=== PATIENT | female | born 1935 | race Caucasian/White ===

== ENCOUNTER → 2017-04-03 16:45 | Outpatient (CLI) | payer MEDICARE | END | disposition home or self-care (01) | LOC: D.MAMMO 13:30 | DX: R92.8 Other abnormal and inconclusive findings on diagnostic imaging of breast (principal) ==

== ENCOUNTER 2017-04-20 06:07 | Day surgery (SDC) | payer MEDICARE ==
[~2017-04-20 06:07] MED LIST: CLARITIN 10 MG10 MG PO; LANTUS INSULIN10 ML SQ; LANTUS SOL100 UNIT/1 SC; NORVASC10 MG PO; NOVOLOG100 U/M1 SC; VENTOLIN HFA18 GM INH
[2017-04-20 07:10] LABS: BASOPHILS 0.4 % (0-2); EOSINOPHILS 2.8 % (0-7); HEMOGLOBIN 15.1 g/dL (12-16); IMMATURE GRANULOCYTES 0.2 % (0-5); LYMPHOCYTES 23.2 % (15-50); MCH 30.8 pg (26.0-34.0); MCHC 33.6 g/dL (31.0-37.0); MCV 91.8 fL (80.0-100.0); MEAN PLATELET VOLUME 9.3 fL (7.4-10.4); MONOCYTES 7.3 % (2-11); NEUTROPHILS 66.1 % (40-80); PLATELET COUNT 207 10x3/uL (130-400); RDW 12.8 % (11.5-14.5); WBC 8.5 10x3/uL (4.8-10.8)
[2017-04-20 07:19] LABS: ANION GAP 9.3 mmol/L (8-16); CALCIUM 9.4 mg/dL (8.5-10.1); CARBON DIOXIDE 33.7 mmol/L (21.0-32.0); CREATININE - SERUM 1.9 mg/dL (0.6-1.3)
[2017-04-20 07:25] VITALS: BP 150/83; BMI 25.3
[2017-04-20] MEDS ORDERED: ULTRAM50 MG PO (11:27)
--- NOTE | 2017-04-20 15:29 | NUR ---
1300 IV DC WITH CATHER TIP INTACT
--- NOTE | 2017-04-21 12:36 | OP ---
PATIENT NAME: PEDRITO BROOKS MEDICAL RECORD: [id number] :35 LOCATION:[facility] ADMISSION DATE: SURGEON: HARRY CARRERO MD DATE OF OPERATION: 04/20/2017 PREOPERATIVE DIAGNOSES: 1. Left breast mass. 2. Chronic obstructive pulmonary disease. 3. Asthma. 4. Hypertension. 5. Hypercholesterolemia. 6. Diabetes mellitus. POSTOPERATIVE DIAGNOSES: 1. Left breast mass. 2. Chronic obstructive pulmonary disease. 3. Asthma. 4. Hypertension. 5. Hypercholesterolemia. 6. Diabetes mellitus. PROCEDURE: Ultrasound-guided excisional left breast biopsy. SURGEON: Harry Carrero MD REPORT OF PROCEDURE: The patient's left breast and axilla were prepped and draped in sterile fashion. Preoperatively, the patient had had an ultrasound, which showed a 1.6 cm lesion in the left inferior breast and also 1.6 cm lesion in the left axilla. An ultrasound evaluation was performed and I could see the mass that was palpable at the 6 o'clock position just past the edge of the nipple areolar complex. This was a shadowing lesion that appeared similar in size to what was seen on previous evaluations. I also evaluated the patient's left axilla, both with palpation and with ultrasound guidance. I was never able to see a shadowing lesion in this area. I could see the vasculature and I could see some smaller lymph nodes, but never any to the size that was stated in the previous reports. I went ahead and made a semicircular incision on the inferior aspect of the patient's nipple areolar complex on the left side and dissected through the subcutaneous tissues and took out a core of tissue at the 6 o'clock range of the left breast. This concluded the palpable mass. Once the tissue was completely excised, it was marked appropriately and sent off for permanent specimen. We then irrigated out the wound with saline and stopped any bleeding using electrocautery. Once we were sure there was no sign of any bleeding, the subcutaneous tissues were reapproximated with interrupted 3-0 Vicryls and the skin was closed with running subcutaneous 5-0 Monocryl. I elected not to do any dissection in the patient's left axilla since I could not definitively find the mass with ultrasound guidance. COMPLICATIONS: None. CONDITION: Stable. ANESTHESIA: General endotracheal and local. BLOOD LOSS: Minimal. OPERATIVE REPORT [id number] PEDRITO BROOKS TRANSINT:[id number] Voice Confirmation ID: [id number] DOCUMENT ID: [id number] HARRY CARRERO MD at 1236 CC: LORI SONG MD [id number] DICTATION DATE: 04/20/17 1132 HELP AID: 04/20/17 1158 DEP SDC 04/20/17 [address] [id number] [place] [address]
[2017-05-03] MEDS ORDERED: ZYLOPRIM300 MG PO (11:34)
== END 2017-04-20 13:00 | disposition home or self-care (01) ==
LOC: D.OPS 06:07 → D.PAN 09:35 → D.OPS 09:35 → D.PAN 09:45 → D.OPS 13:00
PROVIDERS: Anesthesiology
DX: N63.0 Unspecified lump in unspecified breast (principal); J44.9 Chronic obstructive pulmonary disease, unspecified; J45.909 Unspecified asthma, uncomplicated; I10 Essential (primary) hypertension; E78.00 Pure hypercholesterolemia, unspecified; E11.9 Type 2 diabetes mellitus without complications; Z01.812 Encounter for preprocedural laboratory examination

== ENCOUNTER 2017-05-04 05:52 | Day surgery (SDC) | payer MEDICARE ==
[~2017-05-04 05:52] MED LIST changes: +ULTRAM50 MG PO; +ZYLOPRIM300 MG PO
[2017-05-04 06:43] LABS: BASOPHILS 0.4 % (0-2); EOSINOPHILS 1.8 % (0-7); HEMATOCRIT 43.1 % (36.0-48.0); HEMOGLOBIN 14.6 g/dL (12-16); IMMATURE GRANULOCYTES 0.5 % (0-5); LYMPHOCYTES 20.5 % (15-50); MCH 30.9 pg (26.0-34.0); MCHC 33.9 g/dL (31.0-37.0); MCV 91.1 fL (80.0-100.0); MEAN PLATELET VOLUME 9.6 fL (7.4-10.4); MONOCYTES 6.9 % (2-11); NEUTROPHILS 69.9 % (40-80); PLATELET COUNT 200 10x3/uL (130-400); RBC 4.73 10x6/uL (4.00-5.40); RDW 12.8 % (11.5-14.5); WBC 10.8 10x3/uL (4.8-10.8)
[2017-05-04 06:55] LABS: ANION GAP 13.2 mmol/L (8-16); CALCIUM 9.1 mg/dL (8.5-10.1); CARBON DIOXIDE 28.4 mmol/L (21.0-32.0); CREATININE - SERUM 1.5 mg/dL (0.6-1.3); POTASSIUM - SERUM 3.6 mmol/L (3.5-5.1)
[2017-05-04 07:05] VITALS: BP 165/57; BMI 24.5
[2017-05-04 07:30] LABS: APTT 26.2 SECONDS (22.8-39.4)
[2017-05-04 07:31] LABS: INR 0.91 (0.85-1.17); PROTIME 12.1 SECONDS (11.6-15.0)
--- NOTE | 2017-05-16 11:14 | OP ---
PATIENT NAME: PEDRITO BROOKS MEDICAL RECORD: [id number] :35 LOCATION:[facility] ADMISSION DATE: SURGEON: HARRY CARRERO MD DATE OF OPERATION: 05/04/2017 PREOPERATIVE DIAGNOSES: 1. Left breast invasive carcinoma. 2. Hypertension. 3. Diabetes mellitus. 4. Hypercholesterolemia. 5. Asthma. 6. Gout. POSTOPERATIVE DIAGNOSES: 1. Left breast invasive carcinoma. 2. Hypertension. 3. Diabetes mellitus. 4. Hypercholesterolemia. 5. Asthma. 6. Gout. PROCEDURE: 1. Left axillary sentinel lymph node biopsy. 2. Reexcision of the anterior margin of left breast lumpectomy site. SURGEON: Harry Carrero MD REPORT OF PROCEDURE: The patient's left breast and left axilla were prepped and draped in sterile fashion. The patient had a semicircular incision on the inferior aspect of the nipple areolar complex. This was reopened. We then tunneled into the subcutaneous tissues and excised the anterior margin of the wound bed. There was a very thin layer of fatty tissue that was present. This was excised until there was really no tissue left other the skin anteriorly. This was sent off for frozen specimen. The report came back showing no sign of invasive carcinoma. The wound was then irrigated out with normal saline and any bleeding that was found was treated with electrocautery. We then packed the wound and left axilla was approached and a skin incision was made on the inferior aspect. Electrocautery was used to dissect through the subcutaneous tissues until we entered the axillary space. Once in the axillary space, we used the Neoprobe to assess the uptake in the vascular system from the preoperative lymphoscintigraphy. The patient had a lymph node, which was registering at 15,000. This lymph node was excised including 1 small lymph node that was intermittently closed with it. After this lymph node was removed, we inspected the remainder of the axillary cavity and we found no other lymph nodes which required removal. The wound bed was then irrigated out with normal saline. We then reapproximated the subcutaneous tissue and the 2 wounds using interrupted 3-0 Vicryls and the skin incisions were both closed with running subcutaneous 5-0 Monocryl. We infused a total of 10 mL of 0.25% Marcaine plain to the surrounding tissues and dressed the wounds appropriately. COMPLICATIONS: None. CONDITION: Stable. ANESTHESIA: General endotracheal and local. OPERATIVE REPORT [id number] CECILIAPEDRITO BLOOD LOSS: Minimal. TRANSINT:[id number] Voice Confirmation ID: [id number] DOCUMENT ID: [id number] HARRY CARRERO MD at 1114 CC: PAT MCKINNEY MD, LORI SONG MD and TYRA [id number] DICTATION DATE: 05/04/17 1053 TIRE SPECIALIST: 05/04/17 1111 [facility] 05/04/17 [facility] [address] [place] [address]
== END 2017-05-04 13:45 | disposition home or self-care (01) ==
LOC: D.OPS 05:52 → D.NM 07:30 → D.PAN 07:30 → D.OPS 07:30 → EDSTATUS 07:30 → D.OPS 13:45
PROVIDERS: Anesthesiology; Surgery
DX: C50.912 Malignant neoplasm of unspecified site of left female breast (principal); I10 Essential (primary) hypertension; E11.9 Type 2 diabetes mellitus without complications; E78.00 Pure hypercholesterolemia, unspecified; J45.909 Unspecified asthma, uncomplicated; M10.9 Gout, unspecified; K21.9 Gastro-esophageal reflux disease without esophagitis; Z01.812 Encounter for preprocedural laboratory examination

== ENCOUNTER → 2018-06-06 13:46 | Outpatient (CLI) | payer MEDICARE | END | disposition home or self-care (01) | LOC: D.CT 13:30 | DX: R91.1 Solitary pulmonary nodule (principal) ==

== ENCOUNTER → 2018-07-05 11:49 | Outpatient (CLI) | payer MEDICARE ==
--- NOTE | ~2018-07-05 | ST ---
PATIENT:PEDRITO BROOKS MEDICAL RECORD: [id number] SEX: F LOCATION:[facility] ORDER #: ADMISSION DATE: 07/05/18 AGE OF PATIENT: 83 REFERRING PHYSICIAN: INTERPRETING PHYSICIAN: LORRI VERGARA MD DATE OF SERVICE: 07/05/2018 PROCEDURE: Nuclear stress test. INDICATION: Angina, shortness of breath, and hypertension. The patient was exercised on standard Lexiscan protocol with 33 mCi of sestamibi, injected at peak stress and 10 mCi was injected previously for rest images. FINDINGS: Gated SPECT reveals preserved ejection fraction at 50% with good wall motion and thickening and brightening throughout all segments. SPECT imaging Cardiolite was used as myocardial fusion agent. There is homogeneous uptake throughout all segments at rest and stress with no evidence of inducible ischemia or previous infarction. OVERALL IMPRESSION: 1. This is a normal nuclear stress test with no evidence of inducible ischemia or previous infarction. 2. Gated SPECT reveals a preserved ejection fraction at 50%. In this patient with ongoing symptomatology, the current scan does not suggest the presence of hemodynamically significant coronary artery disease. Evaluate noncardiac etiology of chest pain. TRANSINT:[id number] Voice Confirmation ID: [id number] DOCUMENT ID: [id number] LORRI VERGARA MD CC: LORI SONG [id number] DICTATION DATE: 07/06/18 0903 HEALTH TECHNICIAN: 07/07/18 0342 DEP CLI 07/05/[address] [address]
== END | disposition home or self-care (01) ==
LOC: D.HCCARDIO 11:49
DX: I20.9 Angina pectoris, unspecified (principal)

== ENCOUNTER 2018-07-20 08:45 | Inpatient (IN) | payer MEDICARE ==
[~2018-07-20] VITALS: Ht 157.5 cm; Wt 54.5 kg
--- NOTE | ~2018-07-20 | HEMODYNAMI ---
PATIENT:PEDRITO BROOKS MEDICAL RECORD: [id number] : 35 LOCATION:[facility] ADMISSION DATE: 07/20/18 Generatedon:07/20/201818:03 Patient name: PEDRITO BROOKS Patient #: [id number] SSN: : 1935 Date of study: 07/20/2018 Page: Of Hemodynamic Procedure Report Patient Data Patient Demographics Procedure consent was obtained First Name: PEDRITO Gender: Female Last Name: CECILIA : 1935 Patient #: [id number] Age: 83 year(s) Race: Unknown Additional ID: [id number] Contact details Address: [address] [place] [address] [facility] State: [place] City: [place] Zip code: [address] Past Medical History Allergies Allergen Reaction Date Comments Reported Penicillins 07/20/2018 Sulfa drugs 07/20/2018 Admission Admission Data Admission Date: 07/20/2018 Admission Time: 8:45 Procedure Procedure Types Cath Procedure Peripheral Cath Diagnostic Procedure Miscellaneous Procedure Description Procedure Date Procedure Date: 07/20/2018 Procedure Start Time: 17:45 Procedure Staff Name Function Iain Robertson MD Performing Physician Britany Andrews RT Monitor Mikey Simmons RT Scrub Dee Dee Sanchez RN Nurse Procedure Data Cath Procedure Fluoroscopy Diagnostic fluoroscopy Total fluoroscopy Time: 2.7 time: 2.7 min min Diagnostic fluoroscopy Total fluoroscopy dose: 7 dose: 7 mGy mGy Procedure Medications Medication Administration Route Dosage Oxygen etCO2 Nasal cannula 3 l/min Lidocaine 1% added to field 20 Heparin Flush Bag added to field 1 bags (1000units/500ml NS) Fentanyl I.V. 50 mcg Versed I.V. 2 mg Hemodynamics Rest Heart Rate: 107 (bpm) Snapshots Pre Cath Intra NCS Post Cath Vital Signs Time Heart Resp SPO2 etCO2 NIBP (mmHg) Rhythm Pain Sedation Rate (ipm) (%) (mmHg) Status Level (bpm) 17:40:[address] 0 (11) 10(A) , No pain 17:43:26 110 32 100 32.4 187/89(125) ST 0 (11) 10(A) , No pain 17:47:24 108 34 100 21 207/74(135) ST 0 (11) 9(A) , No pain 17:51:58 111 18 97 10.5 131/97(110) ST 0 (11) 8(A) , No pain 17:56:57 92 29 97 12 Measuring NSR 0 (11) 8(A) , No pain 17:58:17 108 31 97 18.8 139/89(110) ST 0 (11) 8(A) , No pain 18:02:39 107 23 97 3 165/72(77) ST 0 (11) 8(A) , No pain Medications Time Medication Route Dose Verified Delivered Reason Notes Effe ctiveness by by 17:47:13 Oxygen etCO2 3 Iain Funez for low Nasal l/min Marcelo Sanchez RN 02 sats cannula 17:48:01 Lidocaine 1% added 20ml Iain Timmons used for to vial Marcelo Robertson procedure field MD CALDERON 17:48:26 Heparin Flush added 1 Iain Timmons used for Bag to bags Marcelo Robertson procedure (1000units/500ml field MD CALDERON NS) 17:48:38 Fentanyl I.V. 50 Iain Dee Dee for Most ly mcg Marcelo Sanchez RN sedation sleeping @ 18:01:18 17:48:49 Versed I.V. 2 mg Iain Funez for Most ly Marcelo Sanchez RN sedation sleeping @ 18:01:14 Procedure Log Time Note 16:52:17 Use device set IR Diagnostic 16:52:20 Sterile Angiographic Pack opened to sterile field. 16:52:21 Bag Decanter (2002S) opened to sterile field. 16:58:51 Time tracking: Regular hours (M-F 7:00 - 5:00) 16:59:15 Plan of Care:Hemodynamics will remain stable., Cardiac rhythm will remain stable., Comfort level will be maintained., Respiratory function will remain adequate., Patient/ family verbilizes understanding of procedure., Procedure tolerated without complication., Recovers from procedure without complications.. 16:59:26 Patient received from Outpatients to IR Alert and oriented. Tansferred to table in Supine position. 16:59:30 Signed procedure consent form obtained from patient. 17:00:09 H&P Date Dictated: 07/20/2018 Within 30 days and on chart.. 17:00:14 Pre-procedure instructions explained to patient. 17:00:15 Pre-op teaching completed and patient verbalized understanding. 17:00:20 Family unavailable. 17:00:23 Patient NPO since Midnight. 17:00:34 Patient allergic to Penicillins 17:00:41 Patient allergic to Sulfa drugs 17:00:52 Is patient on blood thinner?No 17:00:56 Patient diabetic? No. 17:00:58 - 17:01:21 IV patent on arrival in right hand with D5/.45%NaCl at KVO. 17:02:10 Right chest area was prepped with chlora-prep and draped in sterile fashion 17:02:21 - 17:11:36 LÓPEZ 80cm wire ([id number]) opened to sterile field. 17:11:37 Abscession 12 FR drainage catheter ([id number]) opened to sterile field. 17:12:35 YUCH needle opened to sterile field. 17:40:21 - 17:40:24 ECG and BP/O2 sat monitors applied to patient. 17:40:26 Vital chart was started 17:40:38 Baseline sample Acquired. 17:40:41 Full Disclosure recording started 17:44:45 - :44:49 Physician arrived 17:44:50 --------ALL STOP TIME OUT------ :50 Final Timeout: patient, procedure, and site verified with staff and physician. All members of the team are in agreement. :45:50 Procedure started. 17:45:57 Local anesthetic to Chest area with Lidocaine 1% by Iain Robertson MD.INITIAL ACCESS ONLY 17:46:25 STOPCOCK 3-Way Large Bore ([id number]) opened to sterile field. 17:47:13 Oxygen 3 l/min etCO2 Nasal cannula was administered by Dee Dee Sanchez RN; for low 02 sats; 17:48:01 Lidocaine 1% 20ml vial added to field was administered by Iain lord MD; used for procedure; 17:48:02 CONNECTING TUBE FOR DRAINAGE BAG ([id number]) opened to sterile field. 17:48:26 Heparin Flush Bag (1000units/500ml NS) 1 bags added to field was administered by Iain Robertson MD; used for procedure; 17:48:38 Fentanyl 50 mcg I.V. was administered by Dee Dee Sanchez RN; for sedation; :48:49 Versed 2 mg I.V. was administered by Dee Dee Sanchez RN; for sedation; :49:29 - 17:49:34 ----Pre-sedation anethsthesia assessment.---- 17:49:38 Previous problem with sedation/anesthesia? No ? 17:49:41 Snore? No 17:49:50 Deviated septum? No 17:49:52 Opens mouth fully? Yes 17:49:54 Sticks out tongue? Yes 17:50:00 Airway obstruction? Yes copd 17:50:05 Dentures? No ? 17:50:09 - 17:54:51 Procedure ended.(Physican Out) 17:55:05 Fluoroscopy time 02.70 minutes. 17:55:09 Fluoroscopy dose: 7 mGy 17:55:09 Flurop Dose total: 7 17:55:12 Procedure and supply charges have been captured, reviewed, submitted an d are correct. 18:01:09 Report given to Med/Surg. 18:01:14 Effectiveness of Versed delivered @ 17:48:49 is: Mostly sleeping 18:01:18 Effectiveness of Fentanyl delivered @ 17:48:38 is: Mostly sleeping 18:03:49 Vital chart was stopped Device Usage Item Name Manufacture Quantity Catalog Hospital Part Current Minima l Lot# / Number Charge Number Stock Stock Serial# Code Sterile Cardinal 1 [id number] 5 Angiographic Health Pack Bag Decanter Microtek 1 2001S [id number] 5 () [employer]. LÓPEZ 80cm Cook [employer] 1 [id number] [id number] 5 [id number] wire ([id number]) Abscession Angiodynamics 1 [id number] 999878 680152 5 12 FR drainage catheter ([id number]) YUCH needle Cook [facility] 1 [id number] 535114 699934 5 [id number] STOPCOCK Cook [facility] 1 [id number] 898568 1448 [id number] 5 [id number] 3-Way Large Bore ([id number]) CONNECTING [place] 1 [id number] 778555 [id number] [id number] 5 TUBE FOR Scientific DRAINAGE BAG ([id number]) Signature [place] Stage Time Signature Unsigned Intra-Procedure 07/20/2018 Britany Andrews 6:03:47 PM RT(R) Signatures Monitor : Britany Andrews RT Signature : Date : Time : [place] [id number] [place] [address]
[2018-07-20 09:14] LABS: BASOPHILS 0.5 % (0-2); EOSINOPHILS 3.2 % (0-7); HEMATOCRIT 41.9 % (36.0-48.0); HEMOGLOBIN 14.3 g/dL (12-16); IMMATURE GRANULOCYTES 0.2 % (0-5); LYMPHOCYTES 18.2 % (15-50); MCH 31.8 pg (26.0-34.0); MCHC 34.1 g/dL (31.0-37.0); MCV 93.1 fL (80.0-100.0); MEAN PLATELET VOLUME 9.4 fL (7.4-10.4); MONOCYTES 7.7 % (2-11); NEUTROPHILS 70.2 % (40-80); PLATELET COUNT 213 10x3/uL (130-400); RDW 12.6 % (11.5-14.5); WBC 8.7 10x3/uL (4.8-10.8)
[2018-07-20 09:19] LABS: ANION GAP 9.4 mmol/L (8-16); CALCIUM 10.2 mg/dL (8.5-10.1); CARBON DIOXIDE 33.8 mmol/L (21.0-32.0); CREATININE - SERUM 1.7 mg/dL (0.6-1.3); POTASSIUM - SERUM 4.2 mmol/L (3.5-5.1)
[2018-07-20 09:43] LABS: APTT 29.7 SECONDS (22.8-39.4)
[2018-07-20 09:58] VITALS: BP 156/63; BMI 22.0
[2018-07-20 10:19] LABS: INR 0.96 (0.85-1.17); PROTIME 12.2 SECONDS (11.6-15.0)
--- NOTE | 2018-07-20 12:45 | NUR ---
REC'D FROM [facility] VIA BED. NO FAMILY AT BEDSIDE. O2 SAT 90% RA. PLACED ON 2L/MIN NC AND O2 SAT CAME UP TO 92% AFTER 2 MIN ON O2.
--- NOTE | 2018-07-20 13:10 | NUR ---
PT RELATES IT FEELS LIKE SHE HAS PNEUMONIA ON THE RIGHT SIDE. O2 SAT 93% ON 3L/MIN NC.
--- NOTE | 2018-07-20 14:30 | NUR ---
LYING ON LEFT SIDE. O2 SAT 94% ON 2L/MIN NC. TOLD PT THE XRAY WILL BE REPEATED AT ANYTIME.
--- NOTE | 2018-07-20 14:45 | NUR ---
XRAY HERE FOR REPEATED OF XRAY.
--- NOTE | 2018-07-20 15:30 | NUR ---
PATIENT REMOVED O2 AND WENT TO THE BATHROOM. BACK TO BED. SOB WITH LABORED BREATHING OF 24/MIN. O2 SAT 89% ON RA. O2 REPLACED AND SAT UP TO 92%. RELATES IT IS EASIER TO BREATHE SITTING UP.
--- NOTE | 2018-07-20 16:17 | NUR ---
X RAY HERE REPEATING CXR.
--- NOTE | 2018-07-20 16:44 | NUR ---
SPOKE WITH MEHUL IN THE READING ROOM FOR XRAY REGARDING MS. BROOKS'S REPEAT XRAY. RELATES WILL BE PUTTING IN A CHEST TUBE AND ADMITING. WILL HAVE DEEDEE DEVINE RN GIVE NURSE IN OP A CALL.
--- NOTE | 2018-07-20 16:55 | NUR ---
DEEDEE CASTELLANO. CONSENT OBTAINED FOR CHEST TUBE PLACEMENT. TAKEN TO SPECIALS FOR PLACEMENT OF CHEST TUBE AND THEN ADMIT TO THE GLOOR.
--- NOTE | 2018-07-20 19:47 | NUR ---
REC'D PT AT 1830 FROM IR. FRIEND AT BEDSIDE. PT "IS HUNGRY". GAVE PT A SANDWICH TRAY. NO S/S OF ACUTE DISTRESS. CL IN PLACE.
[2018-07-20 20:00] VITALS: BP 156/90
[2018-07-20 22:02] VITALS: BP 156/90; Ht 157.5 cm; Wt 54.5 kg
[2018-07-21] VITALS: BP 167/74
[2018-07-21 04:00] VITALS: BP 153/64
[2018-07-21 06:43] LABS: BASOPHILS 0.3 % (0-2); EOSINOPHILS 1.5 % (0-7); HEMATOCRIT 41.2 % (36.0-48.0); HEMOGLOBIN 13.6 g/dL (12-16); IMMATURE GRANULOCYTES 0.3 % (0-5); LYMPHOCYTES 6.7 % (15-50); MCH 31.1 pg (26.0-34.0); MCV 94.3 fL (80.0-100.0); MEAN PLATELET VOLUME 9.7 fL (7.4-10.4); NEUTROPHILS 84.2 % (40-80); PLATELET COUNT 200 10x3/uL (130-400); RBC 4.37 10x6/uL (4.00-5.40); RDW 12.5 % (11.5-14.5); WBC 11.6 10x3/uL (4.8-10.8)
[2018-07-21 07:27] LABS: ALBUMIN 2.8 g/dL (3.4-5.0); ANION GAP 13.2 mmol/L (8-16); BILIRUBIN - TOTAL 0.46 mg/dL (0.2-1.3); CALCIUM 9.2 mg/dL (8.5-10.1); CARBON DIOXIDE 29.8 mmol/L (21.0-32.0); CREATININE - SERUM 1.4 mg/dL (0.6-1.3); MAGNESIUM - SERUM 1.6 mg/dL (1.8-2.4); PROTEIN - SERUM 6.2 g/dL (6.4-8.2)
--- NOTE | 2018-07-21 07:59 | NUR ---
EYES CLOSED, EVEN UNLABORED BREATHING, EASILY AROUSED BY VOICE, 02 VIA NC AT 2LPM, CHEST TUBE PRESENT, DRAINING, BED LOWERED AND LOCKED, CALL LIGHT WITHIN REACH. CPOC
[2018-07-21 09:00] VITALS: BP 148/56
[2018-07-21 12:00] VITALS: BP 133/53
[2018-07-21 16:00] VITALS: BP 152/64
--- NOTE | 2018-07-21 18:56 | NUR ---
LAYING IN BED, AWAKE AND ALERT, 02 PRESENT AT 2LPM VIA NC, C/O NAUSEA, ADMINISTERED ZOFRAN PER ORDER. DENIES ANY OTHER NEEDS OR DISCOMFORTS, BED LOWERED AND LOCKED, CALL LIGHT WITHIN REACH. CPOC
--- NOTE | 2018-07-21 19:31 | NUR ---
INSPIRATORY WHEEZE TO RUL. NON PRODUCTIVE COUGH.CHEST TUBE INTACT TO LOW SUCTION. ENCOURAGED TO USE CALL LIGHT FOR ASSIST
[2018-07-21 19:38] VITALS: BP 132/54
--- NOTE | 2018-07-21 20:52 | NUR ---
PATIENT RESTING IN BED AND DENIES NEEDS AT THIS TIME. ADMINISTERED MEDS PER ORDERS. BED IN LOWEST POSITION AND CALL LIGHT WITHIN REACH. ENCOURAGED THE PATIENT TO CALL IF SHE HAS NEEDS.
[2018-07-22] VITALS: BP 178/78
[2018-07-22 04:00] VITALS: BP 105/63
[2018-07-22 07:05] LABS: BASOPHILS 0.2 % (0-2); EOSINOPHILS 0.3 % (0-7); HEMATOCRIT 40.6 % (36.0-48.0); HEMOGLOBIN 13.4 g/dL (12-16); IMMATURE GRANULOCYTES 0.4 % (0-5); LYMPHOCYTES 4.6 % (15-50); MCH 31.3 pg (26.0-34.0); MCV 94.9 fL (80.0-100.0); MEAN PLATELET VOLUME 9.8 fL (7.4-10.4); MONOCYTES 4.8 % (2-11); NEUTROPHILS 89.7 % (40-80); PLATELET COUNT 197 10x3/uL (130-400); RBC 4.28 10x6/uL (4.00-5.40); RDW 12.3 % (11.5-14.5); WBC 13.2 10x3/uL (4.8-10.8)
--- NOTE | 2018-07-22 07:15 | NUR ---
PT RESTING IN BED EYES OPEN. NO C/O PAIN. NO S/S OF ACUTE DISTRESS. PT ALERT AND ORIENTED. UP WITH ASSIST. CHEST TUBE TO RIGHT SIDE. RESERVE LEFT ARM. PT ON 2L O2, NC. IV TO RIGHT FOREARM, SL. SITE PATENT WITHOUT REDNESS OR SWELLING. PT DENIES ANYTHING FURTHER AT THIS TIME. CALL LIGHT IN REACH. WILL CONTINUE TO MONITOR.
[2018-07-22 07:29] LABS: ALBUMIN 2.6 g/dL (3.4-5.0); BILIRUBIN - TOTAL 0.41 mg/dL (0.2-1.3); CALCIUM 9.3 mg/dL (8.5-10.1); CARBON DIOXIDE 30.2 mmol/L (21.0-32.0); CREATININE - SERUM 1.5 mg/dL (0.6-1.3); MAGNESIUM - SERUM 1.6 mg/dL (1.8-2.4); PROTEIN - SERUM 6.1 g/dL (6.4-8.2)
[2018-07-22 07:32] LABS: ANION GAP 12.6 mmol/L (8-16); POTASSIUM - SERUM 4.8 mmol/L (3.5-5.1)
--- NOTE | 2018-07-22 08:38 | NUR ---
PT C/O NAUSEA, GAVE ZOFRAN FOR NAUSEA. PT DENIES ANYTHING FURTHER AT THIS TIME. CALL LIGHT IN REACH. WILL CONTINUE TO MONITOR.
[2018-07-22 09:00] VITALS: BP 132/63
--- NOTE | 2018-07-22 11:00 | NUR ---
PT C/O PAIN. GAVE TRAMADOL FOR PAIN. PT DENIES ANYTHING FURTHER AT THIS TIME. CALL LIGHT IN REACH. WILL CONTINUE TO MONITOR.
[2018-07-22 12:00] VITALS: BP 152/67
--- NOTE | 2018-07-22 13:30 | NUR ---
PT MAG LEVEL LOW, GAVE 400MG TAB PO OF MAG. PT EATING LUNCH. NO C/O PAIN. NO S/S OF DISTRESS NOTED. PT DENIES ANYTHING FURTHER AT THIS TIME. CALL LIGHT IN REACH. WILL CONTINUE TO MONITOR.
--- NOTE | 2018-07-22 18:10 | NUR ---
PT RESTING IN BED EATING SUPPER. NO C/O PAIN. NO S/S OF DISTRESS NOTED. PT DENIES ANYTHING FURTHER AT THIS TIME. CALL LIGHT IN REACH. WILL CONTINUE TO MONITOR.
--- NOTE | 2018-07-22 19:15 | NUR ---
RECEIVED CARE FROM DAY NURSE. SITTING UP IN BED. REPORTS NO NEEDS AT THIS TIME. CALL LIGHT AT SIDE. CHEST TUBE IN PLACE. IV TO RIGHT FA SL.
[2018-07-22 20:47] VITALS: BP 165/67
[2018-07-23 00:41] VITALS: BP 174/74
--- NOTE | 2018-07-23 03:56 | NUR ---
PT AWAKE. DENIES NEEDS. BREATHING EVEN AND UNLABORED. WILL CONTINUE POC.
[2018-07-23 04:00] VITALS: BP 155/55
[2018-07-23 07:57] LABS: BASOPHILS 0.3 % (0-2); EOSINOPHILS 2.8 % (0-7); HEMATOCRIT 43.5 % (36.0-48.0); HEMOGLOBIN 14.3 g/dL (12-16); IMMATURE GRANULOCYTES 0.4 % (0-5); MCHC 32.9 g/dL (31.0-37.0); MCV 94.2 fL (80.0-100.0); MEAN PLATELET VOLUME 9.9 fL (7.4-10.4); MONOCYTES 7.1 % (2-11); NEUTROPHILS 78.4 % (40-80); PLATELET COUNT 212 10x3/uL (130-400); RBC 4.62 10x6/uL (4.00-5.40); RDW 12.1 % (11.5-14.5); WBC 10.4 10x3/uL (4.8-10.8)
--- NOTE | 2018-07-23 08:00 | NUR ---
ASSESSMENT PER FLOW SHEET. PT IS WITHOUT DISTRESS. RIGHT CHEST TUBE HAS STRAW COLORED DRAINAGE. PT IS WITHOUT DISTRESS AND DENIES NEEDS.CALL LIGHT IN REACH
[2018-07-23 08:42] LABS: ALBUMIN 2.7 g/dL (3.4-5.0); ANION GAP 10.2 mmol/L (8-16); BILIRUBIN - TOTAL 0.38 mg/dL (0.2-1.3); CALCIUM 9.5 mg/dL (8.5-10.1); CARBON DIOXIDE 33.5 mmol/L (21.0-32.0); CREATININE - SERUM 1.5 mg/dL (0.6-1.3); MAGNESIUM - SERUM 1.9 mg/dL (1.8-2.4); POTASSIUM - SERUM 4.7 mmol/L (3.5-5.1); PROTEIN - SERUM 5.8 g/dL (6.4-8.2)
[2018-07-23] MEDS ORDERED: LOSARTAN POTASS25 MG PO (09:00)
[2018-07-23] MEDS ORDERED: DOK100 MG PO (09:01)
[2018-07-23] MEDS ORDERED: K-TAB10 MEQ PO (09:02)
[2018-07-23] MEDS ORDERED: MULTI-DAY VITAM1 TAB PO (09:04)
[2018-07-23 09:14] VITALS: BP 153/72
--- NOTE | 2018-07-23 11:38 | NUR ---
FSBS 265,SEE MAR
[2018-07-23 12:00] VITALS: BP 139/69
--- NOTE | 2018-07-23 13:08 | NUR ---
PT IS WITHOUT NEEDS.DOOR OPEN
--- NOTE | 2018-07-23 17:20 | NUR ---
OT NOTE: PT COMPLETED BED MOB WITH SBA. PT COMPLETED SIT TO STANDS WITH CGA. PT COMPLETED BUE AROM EXS. PT ALERT AND ABLE TO MAKE NEEDS KNOWN. THANK YOU, NEVA MOORE
--- NOTE | 2018-07-23 18:58 | NUR ---
REMAINS WITHOUT NEEDS,WITHOUT CHANGE.CONT PLAN OF CARE
[2018-07-23 21:52] VITALS: BP 145/56
--- NOTE | 2018-07-24 01:30 | NUR ---
AWAKE IN BED WITH TV ON NO NEEDS AT THIS TIME NO S/S OF DISTRESS.
[2018-07-24 04:41] LABS: BASOPHILS 0.2 % (0-2); EOSINOPHILS 1.9 % (0-7); HEMATOCRIT 39.5 % (36.0-48.0); HEMOGLOBIN 13.5 g/dL (12-16); IMMATURE GRANULOCYTES 0.3 % (0-5); LYMPHOCYTES 5.3 % (15-50); MCH 31.6 pg (26.0-34.0); MCHC 34.2 g/dL (31.0-37.0); MCV 92.5 fL (80.0-100.0); MEAN PLATELET VOLUME 9.3 fL (7.4-10.4); MONOCYTES 8.5 % (2-11); NEUTROPHILS 83.8 % (40-80); PLATELET COUNT 208 10x3/uL (130-400); RBC 4.27 10x6/uL (4.00-5.40); RDW 12.1 % (11.5-14.5); WBC 11.8 10x3/uL (4.8-10.8)
[2018-07-24 04:50] VITALS: BP 155/69
[2018-07-24 05:07] LABS: ALBUMIN 2.3 g/dL (3.4-5.0); ANION GAP 9.8 mmol/L (8-16); BILIRUBIN - TOTAL 0.29 mg/dL (0.2-1.3); CALCIUM 9.8 mg/dL (8.5-10.1); CARBON DIOXIDE 32.3 mmol/L (21.0-32.0); CREATININE - SERUM 1.5 mg/dL (0.6-1.3); MAGNESIUM - SERUM 1.8 mg/dL (1.8-2.4); POTASSIUM - SERUM 4.1 mmol/L (3.5-5.1); PROTEIN - SERUM 6.1 g/dL (6.4-8.2)
--- NOTE | 2018-07-24 07:30 | NUR ---
PT AOX4 RESP EVEN AND NONLABORED PT DENIES NEEDS AT THIS TIME IV TO RIGHT FOREARM PATENT AND INTACT AT THIS TIME SRX2 BED AT LOWEST SETTING CALL LIGHT WITHIN REACH WILL CONTINUE TO MONITOR
--- NOTE | 2018-07-24 10:09 | MORECARE ---
CASE MANAGEMENT DISCHARGE SUMMARY PATIENT: PEDRITO BROOKS UNIT: [id number] ADM DATE: 07/20/18 AGE: 83 : 35 SEX: F ROOM/BED: D.2225 AUTHOR: POLY WALKER PHYSICIAN: REFERRING PHYSICIAN: LORI SONG MD DATE OF SERVICE: 07/24/18 Discharge Plan Patient Name: PEDRITO BROOKS Facility: [facility]:[place] : 1935 Planned Disposition: Home Anticipated Discharge Date: Discharge Date: Expected LOS: Initial Reviewer: [email or web address] Initial Review Date: 07/24/2018 Generated: 07/24/18 11:08 am Patient Name: PEDRITO BROOKS Page 70641 at 1009 All edits/amendments must be made on the electronic document DICTATION DATE: 07/24/181007 SURFACING TECHNICIAN: LUCIANA 07/24/18 1008 RPT#: [id number] DC DATE: STATUS: ADM IN [facility] [address] [place] [address] END OF REPORT
--- NOTE | 2018-07-24 10:17 | MORECARE ---
CASE MANAGEMENT DISCHARGE SUMMARY PATIENT: PEDRITO BROOKS UNIT: [id number] ADM DATE: 07/20/18 AGE: 83 : 35 SEX: F ROOM/BED: D.2225 AUTHOR: POLY WALKER PHYSICIAN: REFERRING PHYSICIAN: LORI TAI MD DATE OF SERVICE: 07/24/18 Discharge Plan Patient Name: PEDRITO BROOKS Facility: [facility]:[place] : 1935 Planned Disposition: Home Anticipated Discharge Date: Discharge Date: Expected LOS: Initial Reviewer: [email or web address] Initial Review Date: 07/24/2018 Generated: 07/24/18 11:17 am Comments DCP- Discharge Planning Updated by [email or web address]: Haily Thomson on 07/24/18 9:[address] Patient Name: PEDRITO BROOKS Admission Status: Elective Accout number: [id number] Admission Date: 07-20-2018 : 1935 Admission Diagnosis: Attending: LORI TAI Current LOS: 4 Anticipated DC Date: Planned Disposition: Home Primary Insurance: [employer] CHO[employer] PPO MCR ADVANT Discharge Planning Comments: CM met with patient to discuss discharge planning, she is alone in the room. She states she lives alone. States she is independent with all ADL's and IADL's. States her friend, Padmini, will pick her up on discharge. States she uses her oxygen as needed. I told her we would test her for need for portable oxygen prior to discharge. She states "no don't test me, I don't want it." She states "you people are making me sick, I just need to get home so I can take care of myself." She states she does not have any home health and does not want it. States "I can take care of myself." Declines need for further DME. CM will continue to follow and assist with discharge planning/needs. [employer] Supervisor: Haily Thomson DCPIA - Discharge Planning Initial Assessment Updated by [email or web address]: Haily Thomson on 07/24/18 10:11 am * Is the patient Alert and Oriented? Yes * How many steps to enter\\exit or inside your home? 0/0 * PCP Dr. Tai * Pharmacy [facility] on [address] * Preadmission Environment Home Alone * ADLs Independent * Equipment Glucometer Nebulizer Oxygen * Other Equipment Blood pressure cuff * List name and contact numbers for known caregivers / representatives who currently or will assist patient after discharge: Padmini shah - [phone] * Verbal permission to speak to the caregivers and representatives has been obtained from the patient. Yes * Community resources currently utilized None * Additional services required to return to the preadmission environment? No * Can the patient safely return to the preadmission environment? Yes * Has this patient been hospitalized within the prior 30 days at any hospital? No Last DP export: 07/24/18 9:08 a Patient Name: PEDRITO BROOKS Page [phone] at 1017 All edits/amendments must be made on the electronic document DICTATION DATE: 07/24/18 1016 ASSISTANT TEACHER PRIMARY: LUCIANA 07/24/18 1016 RPT#: [id number] DC DATE: STATUS: ADM IN [facility] [address] [place] [address] END OF REPORT
--- NOTE | 2018-07-24 15:54 | MORECARE ---
CASE MANAGEMENT DISCHARGE SUMMARY PATIENT: PEDRITO BROOKS UNIT: [id number] ADM DATE: 07/20/18 AGE: 83 : 35 SEX: F ROOM/BED: D.2225 AUTHOR: POLY WALKER PHYSICIAN: REFERRING PHYSICIAN: LORI TAI MD DATE OF SERVICE: 07/24/18 Discharge Plan Patient Name: PEDRITO BROOKS Facility: [facility]:[place] : 1935 Planned Disposition: Home Anticipated Discharge Date: Discharge Date: Expected LOS: Initial Reviewer: [email or web address] Initial Review Date: 07/24/2018 Generated: 07/24/18 4:54 pm Comments DCP- Discharge Planning Updated by [email or web address]: Haily Thomson on 07/24/18 2:[address] Patient Name: PEDRITO BROOKS Encounter No: [id number] : 1935 Primary Insurance: [employer] PPO MCR ADVANT Anticipated DC Date: Planned Disposition: Home External Planned Provider: : DCP follow-up note: Patient and family in agreement with discharge plan. Refuses home health. No changes to plan. Case management will follow and assist as needed. Haily Thomson DCP- Discharge Planning Updated by [email or web address]: Haily Thomson on 07/24/18 9:[address] Patient Name: PEDRITO BROOKS Admission Status: Elective Accout number: [id number] Admission Date: 07-20-2018 : 1935 Admission Diagnosis: Attending: LORI TAI Current LOS: 4 Anticipated DC Date: Planned Disposition: Home Primary Insurance: [employer] CHO[employer] PPO MCR ADVANT Discharge Planning Comments: CM met with patient to discuss discharge planning, she is alone in the room. She states she lives alone. States she is independent with all ADL's and IADL's. States her friend, Padmini, will pick her up on discharge. States she uses her oxygen as needed. I told her we would test her for need for portable oxygen prior to discharge. She states "no don't test me, I don't want it." She states "you people are making me sick, I just need to get home so I can take care of myself." She states she does not have any home health and does not want it. States "I can take care of myself." Declines need for further DME. CM will continue to follow and assist with discharge planning/needs. Casket Upholsterer: Haily Monsonlinda DCPIA - Discharge Planning Initial Assessment Updated by [id number]: Haily Thomson on 07/24/18 10:11 am * Is the patient Alert and Oriented? Yes * How many steps to enter\\exit or inside your home? 0/0 * PCP Dr. Tai * Pharmacy [facility] on [facility] * Preadmission Environment Home Alone * ADLs Independent * Equipment Glucometer Nebulizer Oxygen * Other Equipment Blood pressure cuff * List name and contact numbers for known caregivers / representatives who currently or will assist patient after discharge: Padmini shah - [phone] * Verbal permission to speak to the caregivers and representatives has been obtained from the patient. Yes * Community resources currently utilized None * Additional services required to return to the preadmission environment? No * Can the patient safely return to the preadmission environment? Yes * Has this patient been hospitalized within the prior 30 days at any hospital? No Coverage Notice Reviewer: [id number] - Haily Alix Notice Issued Date-Time: 07/24/2018 15:47 Notice Type: IM Discharge Notice Notice Delivered To: Patient Relationship to Patient: Self Water Conservationist Name: Delivery Method: HAND - Hand Delivered Tila Days: Prior Verbal Notification: Recipient Understood Notice: Yes Recipient Signature: Yes Med Rec Note Co-signed by Attending: Coverage Notice Comment: IMM explained, signed, copy given, original placed in MR Last DP export: 07/24/18 9:17 a Patient Name: PEDRITO BROOKS Page [id number] at 1554 All edits/amendments must be made on the electronic document DICTATION DATE: 07/24/181553 JEWELSMITH: LUCIANA 07/24/181553 RPT#: [id number] DC DATE: STATUS: ADM IN [facility] [address] [place] [address] END OF REPORT
--- NOTE | 2018-07-24 16:21 | NUR ---
IV DISCONTINUED WITH CATHETER INTACT AT THIS TIME PT GIVEN DISCHARGE INSTRUCTIONS AND VERBALIZES UNDERSTANDING AT THIS TIME
--- NOTE | 2018-07-24 16:25 | NUR ---
PT TAKEN VIA WHEELCHAIR VIA PRIVATE VEHICLE AT THIS TIME
--- NOTE | 2018-07-25 09:14 | MORECARE ---
CASE MANAGEMENT DISCHARGE SUMMARY PATIENT: PEDRITO BROOKS UNIT: [id number] ADM DATE: 07/20/18 AGE: 83 : 35 SEX: F ROOM/BED: D.2225 AUTHOR: POLY WALKER PHYSICIAN: REFERRING PHYSICIAN: LORI TAI MD DATE OF SERVICE: 07/25/18 Discharge Plan Patient Name: PEDRITO BROOKS Facility: [facility]:[place] : 1935 Planned Disposition: Home Anticipated Discharge Date: Discharge Date: 07/24/2018 Expected LOS: 0 Initial Reviewer: [email or web address] Initial Review Date: 07/24/2018 Generated: 07/25/18 10:14 am Comments DCP- Discharge Planning Updated by [email or web address]: Haily Thomson on 07/24/18 2:[address] Patient Name: PEDRITO BROOKS Encounter No: [id number] : 1935 Primary Insurance: [employer] CHO[employer] PPO MCR ADVANT Anticipated DC Date: Planned Disposition: Home External Planned Provider: : DCP follow-up note: Patient and family in agreement with discharge plan. Refuses home health. No changes to plan. Case management will follow and assist as needed. Haily Thomson DCP- Discharge Planning Updated by [email or web address]: Haily Thomson on 07/24/18 9:[address] Patient Name: PEDRITO BROOKS Admission Status: Elective Accout number: [id number] Admission Date: 07-20-2018 : 1935 Admission Diagnosis: Attending: LORI TAI Current LOS: 4 Anticipated DC Date: Planned Disposition: Home Primary Insurance: [employer] CHO[employer] PPO MCR ADVANT Discharge Planning Comments: CM met with patient to discuss discharge planning, she is alone in the room. She states she lives alone. States she is independent with all ADL's and IADL's. States her friend, Padmini, will pick her up on discharge. States she uses her oxygen as needed. I told her we would test her for need for portable oxygen prior to discharge. She states "no don't test me, I don't want it." She states "you people are making me sick, I just need to get home so I can take care of myself." She states she does not have any home health and does not want it. States "I can take care of myself." Declines need for further DME. CM will continue to follow and assist with discharge planning/needs. Transportation Broker: Haily Thomson DCPIA - Discharge Planning Initial Assessment Updated by [email or web address]: Haily Thomson on 07/24/18 10:11 am * Is the patient Alert and Oriented? Yes * How many steps to enter\\exit or inside your home? 0/0 * PCP Dr. Tai * Pharmacy [facility] on [facility] * Preadmission Environment Home Alone * ADLs Independent * Equipment Glucometer Nebulizer Oxygen * Other Equipment Blood pressure cuff * List name and contact numbers for known caregivers / representatives who currently or will assist patient after discharge: Padmini shah - [phone] * Verbal permission to speak to the caregivers and representatives has been obtained from the patient. Yes * Community resources currently utilized None * Additional services required to return to the preadmission environment? No * Can the patient safely return to the preadmission environment? Yes * Has this patient been hospitalized within the prior 30 days at any hospital? No Coverage Notice Reviewer: [id number] - Haily Alix Notice Issued Date-Time: 07/24/2018 15:47 Notice Type: IM Discharge Notice Notice Delivered To: Patient Relationship to Patient: Self Dialysis Clinical Manager Name: Delivery Method: HAND - Hand Delivered Tila Days: Prior Verbal Notification: Recipient Understood Notice: Yes Recipient Signature: Yes Med Rec Note Co-signed by Attending: Coverage Notice Comment: IMM explained, signed, copy given, original placed in MR Last DP export: 07/24/18 2:54 p Patient Name: PEDRITO BROOKS Page [id number] at 0914 All edits/amendments must be made on the electronic document DICTATION DATE: 07/25/18913 CONCESSION MANAGER: LUCIANA 07/25/18913 RPT#: [id number] DC DATE:07/24/18 STATUS: DIS IN [facility] [address] [place] [address] END OF REPORT
== END 2018-07-24 16:25 | disposition home or self-care (01) | DRG 199 ==
LOC: D.SP 08:45 → D.MS 19:47 → D.SP 19:48 → D.MS 07-24 16:25
PROVIDERS: Family Medicine; Radiology Diagnostic Radiology; Specialist; ADMIT Family Medicine
PROC: 0W9930Z Drainage of Right Pleural Cavity with Drainage Device, Percutaneous Approach (ICD-10-PCS; 2018-07-20)
PROC: 0BBF3ZX Excision of Right Lower Lung Lobe, Percutaneous Approach, Diagnostic (ICD-10-PCS; principal; 2018-07-20 09:00)
DX: J95.811 Postprocedural pneumothorax (principal); J18.9 Pneumonia, unspecified organism; J98.11 Atelectasis; Y84.8 Other medical procedures as the cause of abnormal reaction of the patient, or of later complication, without mention of misadventure at the time of the procedure; J45.909 Unspecified asthma, uncomplicated; R91.8 Other nonspecific abnormal finding of lung field; E11.65 Type 2 diabetes mellitus with hyperglycemia; E11.22 Type 2 diabetes mellitus with diabetic chronic kidney disease; N18.9 Chronic kidney disease, unspecified